=== PATIENT | female | born 1985 | race Caucasian/White ===

== ENCOUNTER 2018-12-30 01:27 | Emergency (ER) | payer MEDICAID ==
[~2018-12-30 01:27] MED LIST: ALB18R INH; AMOX-559 PO
[2018-12-30 01:32] VITALS: BP 125/74
--- NOTE | 2018-12-30 01:40 | ER Report ---
History and Physical Time Seen By MD: 01:38 Hx. of Stated Complaint: REPORTS "SOMETHING STUCK IN THROAT AFTER DINNER LAST NIGHT" HPI/ROS CHIEF COMPLAINT: Esophageal obstruction HISTORY OF PRESENT ILLNESS: 33-year-old female presents ambulatory to the ER complaining of esophageal obstruction. She is unable to swallow her secretions. She was eating a large piece of chicken which she choked on. She's been able to pass her secretions since about 7 PM. Patient has no history of GERD or previous problems. REVIEW OF SYSTEMS: Respiratory: No cough, no dyspnea. Cardiovascular: No chest pain, no palpitations. Gastrointestinal: No vomiting, no abdominal pain. Musculoskeletal: No back pain. Allergies: Coded Allergies: No Known Drug Allergies (Unverified , 12/30/18) Home Meds Reported Medications Albuterol Sulfate (VENTOLIN HFA) 18 Gm Inh, 1-2 PUFF INH 3-4XD, INH 12/12/16 Discontinued Scripts Amoxicillin/Pot Clav 875-125 Mg Tab (AUGMENTIN 875-125 TABLET) 1 Each Tablet, 1 TAB PO Q12H for 7 Days, #14 TAB Prov:JUAN J STRAUSS MD 12/14/16 Past Medical/Surgical History Recent pneumonia 12/14/18 treated with Augmentin Previous past surgical history eyelid surgery to retract droopy eyelids Reviewed Nurses Notes: Yes Old Medical Records Reviewed: Yes Hx Substance Use Disorder: No Hx Alcohol Use: No Constitutional Vital Sign - Last 24 Hours 12/30/18 12/30/18 01:29 01:32 Temp 98.2 Pulse 116 Resp 17 B/P (MAP) 125/74 (91) 125/74 Pulse Ox 98 O2 Delivery Room Air Physical Exam Vital signs stable, afebrile, pulse ox normal, mild tachycardia General Appearance: The patient is alert, has no immediate need for airway protection and no current signs of toxicity. Mild distress, slightly pale appearing HEENT: Pupils equal and round no injection. Oropharynx with mild erythema, no foreign body noted Respiratory: Chest is non tender, lungs are clear to auscultation. Cardiac: regular rate and rhythm Gastrointestinal: Abdomen is soft and non tender, no masses, bowel sounds normal. Musculoskeletal: Neck: Neck is supple and non tender. Extremities have full range of motion and are non tender. Skin: No rashes or lesions. DIFFERENTIAL DIAGNOSIS: After history and physical exam differential diagnosis was considered for esophageal obstruction, esophageal foreign body Medical Decision Making ED Course/Re-evaluation Clinical Indication for ER IV: Hydration, IV Access ED Course Patient was admitted to an examination room. H&P was done. The differential diagnoses was considered. Patient was given a sip of 7-Up. She was unable to pass it. It came back up. A peripheral IV was established. She was given glucagon 1 mg IV. After a period of observation. She tried to swallow some or 7-Up without success. She is unable to pass anything. I discussed the case with our Gen. surgery on-call, who advised transfer. 12/30/2018 2:57:43 am case was discussed with Dr. Manish Phillips general surgery on- call. He advises transfer to an endoscopist to remove the foreign body. 12/30/2018 3:26:10 am case discussed with Dr. Angela, ER attending at [facility] who accepts the patient for transfer by private auto to her facility. She will arrange for endoscopy to be performed in the foreign body removed. Decision to Disposition Date: Dec 30, 2018 Decision to Disposition Time: 02:56 Depart Departure Latest Vital Signs Vital Signs Date Time Temp Pulse Resp B/P (MAP) Pulse Ox O2 Delivery O2 Flow Rate FiO2 12/30/18 01:32 98.2 116 17 125/74 98 Room Air Impression: Primary Impression: Esophageal foreign body Additional Impression: Esophageal obstruction Condition: Improved Disposition: [facility]FER TO [facility] Problem Qualifiers Primary Impression: Esophageal foreign body Encounter type: initial encounter Qualified Codes: T18.108A - Unspecified foreign body in esophagus causing other injury, initial encounter JENNI CARRERO DO Dec 30, 2018 01:40
[2018-12-30] MEDS ORDERED: GLUCAGON 1 MG KIT IV ONE (01:50)
[2018-12-30] MEDS ORDERED: NORMOSOL R SOLN(*) 1000 ML BAG 1,000 ML IV PRN (02:25)
== END 2018-12-30 03:50 | disposition short-term general hospital (02) ==
LOC: ER 01:32
DX: T18.108A Unspecified foreign body in esophagus causing other injury, initial encounter (principal); K22.2 Esophageal obstruction; X58.XXXA Exposure to other specified factors, initial encounter; Z79.899 Other long term (current) drug therapy
CPT/HCPCS: 99284; J1610